=== PATIENT | female | born 1980 | race Caucasian/White ===

== ENCOUNTER → 2020-05-15 15:59 | Outpatient (BNVA) | payer BC, SELFPAY | PROVIDERS: PCP Internal Medicine; Visit Provider Advanced Practice Midwife ==

== ENCOUNTER 2020-05-28 13:59 | Outpatient (REF) | payer BC, SELFPAY ==
--- NOTE | ~2020-05-28 | US_ITS ---
EXAMINATION: US PELVIS TRANSVAGINAL CLINICAL INFORMATION: Question malpositioned IUD COMPARISON: None. TECHNIQUE: Transcutaneous and transvaginal pelvic ultrasound. Transvaginal scanning was performed after voiding to better evaluate the endometrium and adnexa. FINDINGS: The uterus measures 8.2 x 3.0 x 5.4 cm. The uterus is anteverted. IUD string seen within the cervix. The uterine contour is smooth. No focal abnormalities within the myometrium. IUD is seen in place being central within the canal in the lower uterine segment. The IUD then tracks along the left side as it courses toward the fundus with no definite myometrial penetration/perforation identified. Only one limb of the T is definitely identified which appears to lie within and possibly just beyond the left cornua. I cannot tell if the IUD T limbs are superimposed upon each other or with the right-sided limb possibly folded back lying within the endometrial canal. The right ovary measures approximately 3.2 x 1.9 x 1.8 cm. The calculated right ovarian volume is approximately 5.7 mL. There is normal vascular flow seen to the right adnexa. No suspicious solid masses identified. Normal follicles seen. The left ovary measures 2.8 x 2.3 x 1.6 cm. The calculated left ovarian volume is approximately 5.4 mL. No abnormal left adnexal findings. Normal vascular flow. No significant free pelvic fluid. US/US pelvic complete IMPRESSION: IUD strings seen within the cervix. No definite perforation of the myometrium is identified. Only one T limb is identified within the left cornua with the second T limb possibly overlapping the other T limb or folded back into the endometrial canal.
== END 2020-05-28 14:00 | disposition home or self-care (01) ==
LOC: HO.US 13:59
PROVIDERS: Visit Provider Advanced Practice Midwife
DX: T83.9XXA Unspecified complication of genitourinary prosthetic device, implant and graft, initial encounter (principal)
CPT/HCPCS: 76830; 76856

== ENCOUNTER 2020-07-10 13:22 | Outpatient (REF) | payer BC, SELFPAY ==
[2020-07-11 09:19] LABS: CT PCR NOT DETECTED (Not Detect.); NG PCR NOT DETECTED (Not Detect.)
[2020-07-15 23:02] LABS: HPV mRNA E6/E7 rflx Not Detected (Not Detected)
== END 2020-07-10 13:23 | disposition home or self-care (01) ==
LOC: HO.LAB 13:22
PROVIDERS: Visit Provider Advanced Practice Midwife
DX: T83.9XXA Unspecified complication of genitourinary prosthetic device, implant and graft, initial encounter (principal); N84.1 Polyp of cervix uteri; Z11.51 Encounter for screening for human papillomavirus (HPV)
CPT/HCPCS: 36415; 81025; 87491; 87591; 87624; 88142

== ENCOUNTER 2020-07-22 09:13 | Outpatient (REF) | payer BC, SELFPAY ==
[2020-07-22 14:44] LABS: CT PCR NOT DETECTED (Not Detect.); NG PCR NOT DETECTED (Not Detect.)
== END 2020-07-22 09:14 | disposition home or self-care (01) ==
LOC: HO.LAB 09:13
PROVIDERS: PCP Internal Medicine; Visit Provider Obstetrics & Gynecology
DX: Z30.433 Encounter for removal and reinsertion of intrauterine contraceptive device (principal); N84.1 Polyp of cervix uteri
CPT/HCPCS: 57500; 58300; 58301; 81025; 87491; 87591; 88305

== ENCOUNTER → 2020-08-19 14:17 | Outpatient (BNVA) | payer BC, SELFPAY | PROVIDERS: PCP Internal Medicine; Visit Provider Obstetrics & Gynecology ==

== ENCOUNTER → 2021-07-22 08:09 | Outpatient (BNVA) | payer BC, SELFPAY | PROVIDERS: Visit Provider Obstetrics & Gynecology | DX: Z13.89 Encounter for screening for other disorder (principal) ==

== ENCOUNTER 2021-11-16 08:50 | Outpatient (REF) | payer BC, SELFPAY ==
--- NOTE | ~2021-11-16 | MM_ITS ---
EXAMINATION: MM SCREENING DIGITAL BREAST TOMOSYNTHESIS, BILATERAL CLINICAL INFORMATION: Screening. Asymptomatic. The lifetime risk of breast cancer based on the Tyrer-Cuzick Model is 4.6%. COMPARISON: Mammography: None TECHNIQUE: Digital breast tomosynthesis was performed in both the craniocaudal and mediolateral oblique views along with computer-aided detection (CAD). Synthesized 2D images were generated from the tomosynthesis. FINDINGS: The breasts are heterogeneously dense, which may obscure small masses (ACR BI-RADS breast composition Category c). No abnormal dominant mass or suspicious grouping of microcalcifications is identified. No region of architectural distortion is identified. There are some calcifications seen about the deep aspect of the left breast which are seen to be vascular in nature on tomosynthesis views. MM/MM tomosynthesis screening BI IMPRESSION: No mammographic evidence of malignancy. ASSESSMENT: BI-RADS 2: Benign RECOMMENDATION: Routine annual mammography screening. This patient's information was entered into a reminder system with a target due date for their next mammogram.
== END 2021-11-16 08:51 | disposition home or self-care (01) ==
LOC: HO.MAMMO 08:50
PROVIDERS: PCP Internal Medicine; Visit Provider Internal Medicine
DX: Z12.31 Encounter for screening mammogram for malignant neoplasm of breast (principal)
CPT/HCPCS: 77063; 77067